=== PATIENT | female | born 1955 | race African-American/Black ===

== ENCOUNTER 2018-06-30 06:18 | Day surgery (SDC) | payer OTHER ==
[2018-06-30] MEDS ORDERED: LIDOCAINE 1% (MDV) 20 ML INJ (07:32)
[2018-06-30] MEDS ORDERED: DEXAMETHASONE 4 MG/ML 1 ML INJ ×2 (07:33→08:07)
[2018-06-30] MEDS ORDERED: MIDAZOLAM 1 MG/ML 2 ML INJ (08:00)
[2018-06-30] MEDS ORDERED: PROPOFOL 20 ML (08:00)
[2018-06-30] MEDS ORDERED: LIDOCAINE 2% (SDV) 5 ML INJ (08:00)
[2018-06-30] MEDS ORDERED: ONDANSETRON 4 MG INJ (08:07)
[2018-06-30] MEDS ORDERED: FENTAnyl 50 MCG/ML VIAL (08:07)
[2018-06-30] MEDS ORDERED: CEFAZOLIN 1 GM INJ (08:10)
[2018-06-30] MEDS ORDERED: PROCHLORPERAZINE 10 MG INJ IV (08:30)
[2018-06-30] MEDS ORDERED: FENTAnyl 50 MCG/ML VIAL IV (08:30)
[2018-06-30] MEDS ORDERED: MEPERIDINE 25 MG INJ IV (08:30)
[2018-06-30] MEDS ORDERED: LABETALOL HCL 20MG INJ IV (08:30)
[2018-06-30] MEDS ORDERED: OXYCODONE/ACETAMINOPHEN (5/325) TAB PO (08:30)
[2018-06-30] MEDS ORDERED: hydrALAzine 20 MG INJ IV (08:30)
[2018-06-30] MEDS ORDERED: HYDROmorphONE 1 MG/5 ML IV SYRINGE IV (08:30)
[2018-06-30] MEDS ORDERED: DIPHENHYDRAMINE 50 MG INJ IV (08:30)
[2018-06-30] MEDS: BUPIVACAINE 0.5% (SDV) 30 ML INJ (10:00)
[2018-06-30] MEDS ORDERED: POVIDONE IODINE 10% 28.4 GM OINT (10:02)
[2018-06-30] MEDS ORDERED: EPHEDrine SULFATE 50 MG/5 ML SYG (10:09)
[2018-06-30] MEDS: ONDANSETRON 4 MG INJ IV (10:27)
[2018-06-30] MEDS: HYDROmorphONE 1 MG/5 ML IV SYRINGE IV ×3 (10:28→10:53)
== END 2018-06-30 12:41 | disposition home or self-care (01) ==
LOC: SDS 06:18
DX: Z47.2 Encounter for removal of internal fixation device (principal)
CPT/HCPCS: 20680; 73630